=== PATIENT | male | born 1990 | race African-American/Black ===

== ENCOUNTER 2023-10-16 01:40 | Emergency (ER) | payer MEDICAID ==
[~2023-10-16] VITALS: Ht 190.5 cm; Wt 113.4 kg
[2023-10-16 02:01] VITALS: TEMP 98.8
[2023-10-16] MEDS ORDERED: KETOROLAC TROMETHAMINE INJ 30 MG/ML VIAL ONE (02:13)
[2023-10-16] MEDS ORDERED: OXYMETAZOLINE HCL NASAL SPRAY 30 ML BOTTLE NS ONE (02:13)
[2023-10-16] MEDS: IV NS 0.9% 1,000 ML BAG IV ONE (02:25)
[2023-10-16] MEDS: OXYMETAZOLINE HCL NASAL SPRAY 30 ML BOTTLE NS ONE (02:25)
[2023-10-16] MEDS: KETOROLAC TROMETHAMINE INJ 30 MG/ML VIAL IV ONE (02:25)
[2023-10-16] MEDS ORDERED: methylPREDNISolone SOD SUCC 125 MG/2ML VIAL ONE (02:26)
[2023-10-16] MEDS: methylPREDNISolone SOD SUCC 125 MG/2ML VIAL IV ONE (02:27)
[2023-10-16] MEDS ORDERED: SUMATRIPTAN SUCCINATE 6 MG/0.5 ML VIAL SQ ONE (03:21)
[2023-10-16] MEDS: SUMATRIPTAN SUCCINATE 6 MG/0.5 ML VIAL SQ ONE (03:24)
[2023-10-16] MEDS ORDERED: FLUT16SP16 BNOSTRILS (03:54)
[2023-10-16] MEDS ORDERED: SUMA100T PO (03:54)
[2023-10-16 04:06] VITALS: BP 158/84; O2SAT 100
== END 2023-10-16 04:08 | disposition home or self-care (01) ==
LOC: ER 01:43
DX: G44.009 Cluster headache syndrome, unspecified, not intractable (principal); J32.9 Chronic sinusitis, unspecified; Z79.899 Other long term (current) drug therapy
CPT/HCPCS: 99284; 96374; 96361; 96375; 96372; J3030; J2919; J1885; J7030